=== PATIENT | female | born 1980 | race Caucasian/White ===

== ENCOUNTER 2024-02-05 14:32 | Emergency (ER) | payer OTHER, SELFPAY ==
[2024-02-05 14:40] VITALS: BP 182/118
[2024-02-05] MEDS: TYLENOL 1000 MG PO (15:09)
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
[2024-02-05 16:00] VITALS: BP 128/79
== END 2024-02-05 16:10 | disposition home or self-care (01) ==
LOC: EMR 14:32
PROVIDERS: EMERGENCY PHYSICIAN Emergency Medicine; FAMILY PHYSICIAN Family Medicine
DX: S09.90XA Unspecified injury of head, initial encounter (principal); G44.319 Acute post-traumatic headache, not intractable; R42 Dizziness and giddiness; V49.40XA Driver injured in collision with unspecified motor vehicles in traffic accident, initial encounter; Y92.410 Unspecified street and highway as the place of occurrence of the external cause
CPT/HCPCS: 99283